=== PATIENT | female | born 1995 | race Caucasian/White ===

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

== ENCOUNTER 2017-10-27 18:07 | Emergency (ER) | payer OTHER ==
[~2017-10-27] VITALS: Ht 152.4 cm; Wt 55.5 kg
[~2017-10-27 18:07] MED LIST: MACROBID100 MG PO; ZOFRAN ODT4 MG PO
[2017-10-27 21:59] VITALS: BP 130/65
== END 2017-10-27 22:02 ==
LOC: EME 18:07
DX: T40.1X1A Poisoning by heroin, accidental (unintentional), initial encounter (principal); F17.200 Nicotine dependence, unspecified, uncomplicated; Z88.0 Allergy status to penicillin; Z88.1 Allergy status to other antibiotic agents
CPT/HCPCS: 99281; 99284; J2310; J7040